=== PATIENT | male | born 1935 | race Caucasian/White ===

== ENCOUNTER 2017-07-30 05:24 | Emergency (ER) | payer MEDICARE, BC ==
[~2017-07-30] VITALS: Ht 180.3 cm; Wt 74.8 kg
--- NOTE | 2017-07-30 05:37 | NUR ---
PT BIBA#102 FROM HOME, PT C/O COUGH X 5 MONTHS WITH SOB. PT STATES DIFFICULTY TAKING DEEP BREATHS. PT NOTED TO BE COUGHING/TACHYPNIC AT 24BPM. SPO2 96% ON RA. PT PLACED ON NC 2L/M. RESP EVEN WITH MILD LABOR NOTED. PT NOTED TO BE IN MILD DISTRESS. SKIN DRY AND WARM TO TOUCH. VSS. PT PLACED ON MONITOR AND POX. PT SAFETY AND COMFORT MEASURES IN PLACE. PT'S FAMILY BEDSIDE. BEDSIDE FOR EVAL.
--- NOTE | 2017-07-30 05:41 | NUR ---
BLOOD SPECIMEN COLLECTED AND SENT TO LAB.
[2017-07-30 06:10] LABS: BASOPHILS # (AUTO) 0.1 /CMM (0.0-0.2); BASOPHILS % (AUTO) 0.5 % (0.0-2.0); EOSINOPHILS % (AUTO) 2.8 % (0.0-6.0); HEMATOCRIT 49 % (39-51); HEMOGLOBIN 16.3 g/dL (13.5-17.5); LYMPHOCYTES # (AUTO) 0.6 /CMM (0.8-4.8); LYMPHOCYTES % (AUTO) 4.4 % (20.0-44.0); MEAN CORPUSCULAR HGB CONC 34 g/dl (31.0-36.0); MEAN CORPUSCULAR VOLUME 91 fL (80-96); MONOCYTES # (AUTO) 0.4 /CMM (0.1-1.30); NEUTROPHILS # (AUTO) 11.7 /CMM (1.8-8.9); NEUTROPHILS % (AUTO) 89.3 % (43.0-81.0); PLATELET COUNT (AUTO) 205 /CMM (150-450); RDW COEFFICIENT OF VARIATION 13.1 (11.5-15.0); RED BLOOD CELL COUNT(AUTO) 5.34 MIL/uL (4.5-6.0); WHITE BLOOD COUNT (AUTO) 13.1 K/uL (4.3-11.0)
--- NOTE | 2017-07-30 06:15 | NUR ---
RT BEDSIDE FOR BREATHING TREATMENT
[2017-07-30 06:17] LABS: CALCIUM, SERUM 9.2 mg/dL (8.5-10.1); CARBON DIOXIDE 27 mmol/L (21-32); CHLORIDE 103 mmol/L (98-107); GLUCOSE 103 mg/dL (74-106); POTASSIUM 4.3 mmol/L (3.5-5.1); SODIUM SERUM 138 mmol/L (136-145); UREA NITROGEN, BLOOD 21 mg/dL (7-18)
[2017-07-30 06:25] LABS: TROPONIN I < 0.017 ng/mL (0.00-0.056)
--- NOTE | 2017-07-30 06:25 | NUR ---
SEGREGATOR BEDSIDE FOR CHEST X-RAY
[2017-07-30 06:30] LABS: ALANINE AMINOTRANSFERASE 55 U/L (12-78); ALBUMIN 3.6 g/dL (3.4-5.0); ALKALINE PHOSPHATASE 101 U/L (46-116); ASPARTATE AMINOTRANSFERASE 39 U/L (15-37); B-TYPE NATRIURETIC PEPTIDE 287 PG/ML (0-125); BILIRUBIN,DIRECT 0.2 mg/dL (0.0-0.2); TOTAL PROTEIN, SERUM 7.9 g/dL (6.4-8.2)
[2017-07-30] MEDS ORDERED: ALBUTEROL FS 2.5 MG/3 ML VIAL.NEB NEB ONE (06:30)
[2017-07-30] MEDS ORDERED: IPRATROPIUM NEB FS 0.5 MG/2.5 ML AMPUL.NEB NEB ONE (06:30)
--- NOTE | 2017-07-30 07:11 | NUR ---
REPORT GIVEN TO KIRILL LUKE FOR JEREMY.
[2017-07-30] MEDS ORDERED: methylPREDNISolone SOD SUCC 125 MG/2ML VIAL IV ONE (07:30)
[2017-07-30] MEDS ORDERED: methylPREDNISolone SOD SUCC 125 MG/2ML VIAL ONE (07:32)
--- NOTE | 2017-07-30 07:45 | NUR ---
IV removed. Catheter intact and site benign. Pressure and 4x4 applied to site. No bleeding noted.Patient discharged to home in stable condition. Written and verbal after care instructions given. Patient verbalizes understanding of instruction. ambulatory with a steady gait
[2017-07-30 07:49] VITALS: BP 130/74
== END 2017-07-30 07:50 | disposition home or self-care (01) ==
LOC: ER 05:27
DX: R06.02 Shortness of breath (principal); R05 Cough; I25.2 Old myocardial infarction; I70.0 Atherosclerosis of aorta; J18.9 Pneumonia, unspecified organism; J84.10 Pulmonary fibrosis, unspecified; F17.200 Nicotine dependence, unspecified, uncomplicated
CPT/HCPCS: 36415; 71045-TC; 80048-TC; 80076-TC; 83605-TC; 83880; 84484-TC; 85025-TC; 87040-TC; A4606; J2930; Z7610